=== PATIENT | male | born 1965 | race African-American/Black ===

== ENCOUNTER 2016-12-29 11:00 | Emergency (ER) | payer BC, OTHER ==
[~2016-12-29] VITALS: Ht 162.6 cm; Wt 103.0 kg
[2016-12-29 11:47] LABS: BASOPHILS % 0.8 % (0.0-2.0); EOSINOPHILS % 1.7 % (0.0-5.0); HEMATOCRIT. 45.2 % (42.0-52.0); HEMOGLOBIN. 14.8 g/dL (14.0-18.0); LYMPHOCYTES % 32.4 % (20.0-50.0); MEAN CORPUSCULAR HGB CONC 32.7 g/dL (31.0-37.0); MEAN CORPUSCULAR VOLUME 85.8 fL (80.0-94.0); NEUTROPHILS % 55.1 % (40.0-76.0); PLATELET 154 x1000/uL (130-400); RED BLOOD CELL COUNT 5.27 mill/uL (4.7-6.1); RED CELL DISTRIBUTION WIDTH 14.3 % (11.6-14.6); WHITE BLOOD COUNT 6.1 x1000/uL (4.5-11.0)
[2016-12-29 11:58] LABS: PROTHROMBIN TIME 10.3 sec
[2016-12-29 12:04] LABS: ALANINE AMINOTRANSFERASE 30 IU/L (13-61); ALBUMIN 4.1 g/dL (3.4-5.0); ANION GAP 14; CALCIUM 9.5 mg/dL (8.5-10.1); CARBON DIOXIDE 24 mEq/L (21-32); CHLORIDE 110 mEq/L (98-107); INDEX HEMOLYSI 1 (1-3); INDEX ICTERIC 1 (1-4); INDEX LIPEMIC 1 (1-3); NT PRO B-TYPE NATRIURETIC PEP 12 pg/mL (5-125); TROPONIN I < 0.02 ng/mL (0.00-0.04); UREA NITROGEN BLOOD 12 mg/dL (7-21); eGFR > 60 mL/min (>60)
[2016-12-29] MEDS ORDERED: MORPHINE SULFATE 4 MG/ML CPJ (NOT FOR IM USE) IV ONE (12:15)
[2016-12-29] MEDS ORDERED: ASPIRIN 325MG EC TABLET PO ONE (12:15)
[2016-12-29] MEDS ORDERED: NITROGLYCERIN 0.4MG TABLET SL SL ONE (12:15)
[2016-12-29 12:32] VITALS: BP 126/92
[2016-12-29] MEDS ORDERED: MORPHINE SULFATE 2 MG/ML CPJ (NOT FOR IM USE) IV PRN (14:30)
[2016-12-29] MEDS ORDERED: ENOXAPARIN 40MG/0.4ML SYR SUBCUT SCH (14:30)
[2016-12-29] MEDS ORDERED: GUAIFENESIN 200MG/10ML SUGAR FREE UDC PO PRN (14:30)
[2016-12-29] MEDS ORDERED: ONDANSETRON HCL 4MG/2ML VIAL IV PRN (14:30)
[2016-12-29] MEDS ORDERED: MAGNESIUM/ALUMINUM HYDROXIDE/SIMETHICONE 30ML UDC PO PRN (14:30)
[2016-12-29] MEDS ORDERED: LORAZEPAM 2MG/ML CPJ IV PRN (14:30)
[2016-12-29] MEDS ORDERED: ZOLPIDEM TARTRATE 5MG TABLET PO PRN (14:30)
[2016-12-29] MEDS ORDERED: NITROGLYCERIN 0.4MG TABLET SL SL PRN (14:30)
[2016-12-29] MEDS ORDERED: ACETAMINOPHEN 325MG TABLET PO PRN (14:30)
[2016-12-29] MEDS ORDERED: IPRATROPIUM/ALBUTEROL 0.5-3(2.5)MG/3ML NEB INH PRN (14:30)
[2016-12-29] MEDS ORDERED: NA PHOS,M-B/NA PHOS,DI-BA ENEMA 118ML PR PRN (14:30)
[2016-12-29] MEDS ORDERED: CLONIDINE 0.1MG TABLET PO PRN (14:30)
[2016-12-29] MEDS ORDERED: DIPHENHYDRAMINE 50MG/ML VIAL IV PRN (14:30)
[2016-12-29] MEDS ORDERED: TRAMADOL 50MG TABLET PO PRN (14:30)
[2016-12-29] MEDS ORDERED: DOCUSATE SODIUM 100MG CAPSULE PO PRN (14:30)
[2016-12-29] MEDS ORDERED: METOPROLOL TARTRATE 25MG TABLET PO SCH (21:00)
[2016-12-30] MEDS ORDERED: PANTOPRAZOLE SODIUM 40 MG/VIAL IV SCH (09:00)
[2016-12-30] MEDS ORDERED: ASPIRIN 325MG EC TABLET PO SCH (09:00)
== END 2016-12-29 16:50 | disposition left against medical advice (07) ==
LOC: ER 12:21 → SUPCPDRO 14:25 → ER 16:50
DX: I24.9 Acute ischemic heart disease, unspecified (principal); Z88.8 Allergy status to other drugs, medicaments and biological substances
CPT/HCPCS: 36415; 71010; 80053; 80061; 83036; 83880; 84484; 85025; 85610; 93005; 96374; 99285; J2270

== ENCOUNTER 2018-04-13 07:31 | Emergency (ER) | payer OTHER ==
[~2018-04-13] VITALS: Ht 177.8 cm; Wt 96.0 kg
[2018-04-13] MEDS ORDERED: ONDANSETRON HCL 4MG/2ML VIAL IV STA ×2 (07:55→10:09)
[2018-04-13] MEDS ORDERED: SODIUM CHLORIDE 0.9% 1,000 ML IV ONE (07:55)
[2018-04-13] MEDS ORDERED: KETOROLAC 30MG/ML VIAL IV STA (07:55)
[2018-04-13] MEDS ORDERED: LORAZEPAM 2MG/ML CPJ IV ONE (08:00)
[2018-04-13 08:41] LABS: BASOPHILS % 0.6 % (0.0-2.0); EOSINOPHILS % 0.3 % (0.0-5.0); HEMATOCRIT. 43.5 % (42.0-52.0); HEMOGLOBIN. 14.4 g/dL (14.0-18.0); LYMPHOCYTES % 20.1 % (20.0-50.0); MEAN CORPUSCULAR HEMOGLOBIN 28.8 pg (28.0-32.0); MEAN CORPUSCULAR VOLUME 86.6 fL (80.0-94.0); MEAN PLATELET VOLUME 10.6 fl (7.4-10.4); MONOCYTES % 5.6 % (2.0-8.0); NEUTROPHILS % 73.4 % (40.0-76.0); PLATELET 179 x1000/uL (130-400); RED BLOOD CELL COUNT 5.02 mill/uL (4.7-6.1); RED CELL DISTRIBUTION WIDTH 14.1 % (11.6-14.6)
[2018-04-13 08:50] LABS: CHLORIDE 109 mEq/L (98-107)
[2018-04-13] MEDS ORDERED: MORPHINE SULFATE 4 MG/ML CPJ (NOT FOR IM USE) IV STA (10:09)
[2018-04-13 11:12] VITALS: BP 139/86
== END 2018-04-13 11:33 | disposition home or self-care (01) ==
LOC: ER 07:45
DX: R10.32 Left lower quadrant pain (principal); R11.0 Nausea; Z88.1 Allergy status to other antibiotic agents
CPT/HCPCS: 36415; 74176; 80053; 85025; 96374; 96375; 96376; 99285; J1885; J2060; J2270; J2405; J7030; Z7610

== ENCOUNTER 2019-03-11 21:11 | Emergency (ER) | payer OTHER ==
[~2019-03-11] VITALS: Ht 167.6 cm; Wt 87.0 kg
[2019-03-11] MEDS ORDERED: KETOROLAC 30MG/ML VIAL IV STA (22:57)
[2019-03-11 23:24] LABS: BASOPHILS % 0.2 % (0.0-2.0); HEMATOCRIT. 46.7 % (42.0-52.0); HEMOGLOBIN. 15.3 g/dL (14.0-18.0); LYMPHOCYTES % 7.3 % (20.0-50.0); MEAN CORPUSCULAR HEMOGLOBIN 29.1 pg (28.0-32.0); MEAN CORPUSCULAR VOLUME 88.6 fL (80.0-94.0); MONOCYTES % 3.7 % (2.0-8.0); NEUTROPHILS % 88.8 % (40.0-76.0); PLATELET 180 x1000/uL (130-400); RED BLOOD CELL COUNT 5.27 mill/uL (4.7-6.1); RED CELL DISTRIBUTION WIDTH 13.9 % (11.6-14.6)
[2019-03-11 23:31] LABS: CHLORIDE 106 mEq/L (98-107)
[2019-03-11] MEDS ORDERED: ONDANSETRON HCL 4MG/2ML INJ IV NR (23:45)
[2019-03-11] MEDS ORDERED: SODIUM CHLORIDE 0.9% 1,000 ML IV NR (23:45)
[2019-03-12] MEDS ORDERED: MORPHINE SULFATE 4 MG/ML CPJ (NOT FOR IM USE) IV ONE (00:15)
[2019-03-12 00:40] VITALS: BP 107/76
[2019-03-12] MEDS ORDERED: IOHEXOL-300 100 ML BOTTLE ONE (01:41)
[2019-03-12] MEDS ORDERED: CEFTRIAXONE 1 G PREMIX 50 ML IV ONE (01:45)
[2019-03-12] MEDS ORDERED: METRONIDAZOLE 500 MG PREMIX 100 ML IV ONE (01:45)
== END 2019-03-12 03:50 | disposition home or self-care (01) ==
LOC: ER 21:11 → EDBEDREQ 03-12 02:08 → ER 03-12 03:50 → CANBEDREQ 03-12 05:02
DX: K57.92 Diverticulitis of intestine, part unspecified, without perforation or abscess without bleeding (principal); F17.210 Nicotine dependence, cigarettes, uncomplicated; Z71.6 Tobacco abuse counseling
CPT/HCPCS: 36415; 71045; 74177; 80053; 83605; 83690; 85025; 96365; 96367; 96375; 99284; 99406; J0696; J1885; J2270; J2405; J3490; Q9967